=== PATIENT | female | born 1975 | race Caucasian/White ===

== ENCOUNTER 2022-12-20 12:04 | Emergency (ER) | payer OTHER ==
[~2022-12-20] VITALS: Ht 165.1 cm; Wt 81.6 kg
[2022-12-20 12:18] VITALS: BP 138/74
--- NOTE | 2022-12-20 12:21 | NUR ---
PT AMBULATED TO BED 12
--- NOTE | 2022-12-20 12:38 | NUR ---
47/F WALKED IN C/O VAGINAL PAIN ONSET 2 DAYS. PT REPORTS VISITING URGENT CARE TODAY AND WAS TOLD TO VISIT FOR POSSIBLE VAGINAL CYST THAT MAY POSSIBLY NEED DRAINAGE. PT REPORTS 5/10 VAGINAL PAIN. DENIES HEMATURIA OR DYSURIA. AAO4, AMBULATORY, VITALS STABLE. IN GOWN, ON MONITOR, URINE COLLECTED PMH: ASTHMA
[2022-12-20] MEDS ORDERED: DOXY-690 PO (13:14)
== END 2022-12-20 13:25 | disposition home or self-care (01) ==
LOC: MED 12:04
DX: N75.0 Cyst of Bartholin's gland (principal); J45.909 Unspecified asthma, uncomplicated; Z88.0 Allergy status to penicillin; Z79.899 Other long term (current) drug therapy
CPT/HCPCS: 81025; 99283

== ENCOUNTER 2023-03-11 17:29 | Outpatient (CLI) | payer OTHER ==
[~2023-03-11 17:29] MED LIST: DOXY-690 PO
== END 2023-03-11 20:50 | disposition home or self-care (01) ==
LOC: MRD 17:29
DX: F17.210 Nicotine dependence, cigarettes, uncomplicated (principal)
CPT/HCPCS: 71250

== ENCOUNTER 2024-02-01 10:25 | Outpatient (CLI) | payer OTHER ==
[2024-02-01 11:17] LABS: BASOPHILS % (AUTO) 0.7 % (0.0-2.0); EOSINOPHILS # (AUTO) 0.4 K/uL (0-0.4); EOSINOPHILS % (AUTO) 7.5 % (0.0-4.0); HEMATOCRIT 44.5 % (36-48); HEMOGLOBIN 15.6 g/dL (12.0-16.0); LYMPHOCYTES # (AUTO) 1.6 K/uL (2.5-16.5); LYMPHOCYTES % (AUTO) 29.5 % (20.5-51.1); MEAN CORPUSCULAR HEMOGLOBIN 31 pg (27-31); MEAN CORPUSCULAR HGB CONC 35 g/dL (33-37); MEAN CORPUSCULAR VOLUME 88.2 fL (80-94); MONOCYTES # (AUTO) 0.4 K/uL (0.8-1.0); MONOCYTES % (AUTO) 8.5 % (1.7-9.3); NEUTROPHILS # (AUTO) 2.8 K/uL (1.8-7.7); NEUTROPHILS % (AUTO) 53.8 % (42.2-75.2); PLATELET COUNT (AUTO) 248 K/uL (140-450); RED BLOOD CELL COUNT(AUTO) 5.05 MIL/uL (4.20-5.40); RED CELL DISTRIBUTION WIDTH 13.9 % (11.6-13.7); WHITE BLOOD COUNT (AUTO) 5.3 K/uL (4.8-10.8)
[2024-02-01 11:47] LABS: CHOL/HDL RATIO 3.3 (1-4.5); THYROID STIMULATING HORMONE 1.28 uIU/mL (0.34-3.74)
[2024-02-02 09:06] LABS: HIV 1/0/2 ABS, QUAL Non Reactive (Non Reactive); T4 FREE (DIRECT) 1.41 ng/dL (0.82-1.77); VITAMIN D, 25-HYDROXY 31.1 ng/mL (30.0-100.0)
[2024-02-02 12:07] LABS: HEPATITIS C AB Non Reactive (Non Reactive)
[2024-02-03 13:13] LABS: RAPID PLASMA REAGIN NON-REACTIVE (Non Reactiv)
== END 2024-02-01 21:18 | disposition home or self-care (01) ==
LOC: MLB 10:25
DX: Z11.3 Encounter for screening for infections with a predominantly sexual mode of transmission (principal); Z13.1 Encounter for screening for diabetes mellitus; D51.0 Vitamin B12 deficiency anemia due to intrinsic factor deficiency; Z13.220 Encounter for screening for lipoid disorders; E55.9 Vitamin D deficiency, unspecified; E61.1 Iron deficiency; D52.9 Folate deficiency anemia, unspecified; G43.909 Migraine, unspecified, not intractable, without status migrainosus; R00.2 Palpitations
CPT/HCPCS: 36415; 70450; 82306; 82607; 82746; 83036; 83880; 84439; 84443; 85025; 86592; 86694; 86702; 86804; 87491; 87522

== ENCOUNTER 2024-05-26 10:08 | Emergency (ER) | payer OTHER ==
[~2024-05-26] VITALS: Ht 165.1 cm; Wt 79.4 kg
[2024-05-26 10:15] VITALS: BP 138/83; PULSE 75; RESP 16; TEMP 97.5; O2SAT 100
[2024-05-26] MEDS: FLUORESCEIN OPTH STRIP 1 MG OP ONE (11:14)
[2024-05-26] MEDS: TETRACAINE HCL/PF 0.5% OPTH 4 ML BTL OP ONE (11:14)
[2024-05-26] MEDS ORDERED: ERYT5OIN58 OP (12:14)
[2024-05-26 13:47] VITALS: BP 138/83; PULSE 70; RESP 17; TEMP 97.5; O2SAT 99
== END 2024-05-26 13:15 | disposition home or self-care (01) ==
LOC: MED 10:08
DX: H57.89 Other specified disorders of eye and adnexa (principal); J45.909 Unspecified asthma, uncomplicated; Z79.899 Other long term (current) drug therapy; Z88.0 Allergy status to penicillin
CPT/HCPCS: 99284